=== PATIENT | female | born 1975 | race Caucasian/White ===

== ENCOUNTER 2022-09-24 05:47 | Day surgery (SDC) | payer BC, OTHER ==
[2022-09-22 14:29] VITALS: BMI 21.4
[2022-09-22 15:08] LABS: Hemoglobin 12.9 g/dL (12.0-15.5); Mean Corpuscular HGB CONC 33.7 g/dL (32.0-36.0); Mean Corpuscular Hemoglobin 32.4 pg (27.0-33.0); Mean Corpuscular Volume 96.2 fl (81.6-98.3); Platelet Count 214 10x3/uL (150-450); RBC Distribution Width 11.9 % (11.5-14.5); Red Blood Cell (RBC) Count 3.98 10x6/uL (3.90-5.03)
[2022-09-22 15:12] LABS: BHCG - Serum Negative (NEGATIVE); Pregs Control Bar Appear? YES (CONTROL BAR)
[2022-09-22 15:13] LABS: Pregs Control Background? CLEAR/WHITE (CLR/WHITE)
[2022-09-24] MEDS ORDERED: CeleCOXIB 100 MG CAP ONE (06:19)
[2022-09-24] MEDS ORDERED: Gabapentin 300 MG CAP ONE (06:20)
[2022-09-24] MEDS ORDERED: Famotidine/PF 20 mg/2ml Vial ONE (06:20)
[2022-09-24] MEDS ORDERED: Dexmedetomidine 200 MCG/2 ML VIAL ONE (06:37)
[2022-09-24] MEDS ORDERED: metroNIDAZOLE 500 MG/100 ML BAG ONE (06:37)
[2022-09-24] MEDS ORDERED: Dexamethasone 20 MG/5 ML VIAL ONE (06:47)
[2022-09-24] MEDS ORDERED: Ondansetron PF 4 MG/2 ML Vial ONE ×2 (06:47→12:22)
[2022-09-24] MEDS ORDERED: Ketorolac Tromethamine 30 MG/ML VIAL ONE (06:47)
[2022-09-24] MEDS ORDERED: PROPOFOL 20 ML ONE (06:47)
[2022-09-24] MEDS ORDERED: Midazolam HCl 2 mg/2 ml Vial ONE ×3 (06:47→07:39)
[2022-09-24] MEDS ORDERED: Glycopyrrolate 0.2 MG/ML 5 ML SYRINGE ONE (06:47)
[2022-09-24] MEDS ORDERED: Lidocaine 1% PF 5 ML VIAL ONE (06:47)
[2022-09-24] MEDS ORDERED: Fentanyl 250 MCG/5 ML VIAL ONE (06:47)
[2022-09-24] MEDS ORDERED: Bupivacaine HCl 0.5%/Epinephrine 1:200,000/PF 30 ml Vial ONE (06:50)
[2022-09-24] MEDS ORDERED: CEFAZOLIN 2 GM VIAL ONE (07:05)
[2022-09-24] MEDS ORDERED: PHENYLEPHRINE-NS 100 MCG/ML 10 ML SYRINGE ONE (07:52)
== END 2022-09-24 14:20 | disposition home or self-care (01) ==
LOC: CSHSDC 05:47
PROVIDERS: ATTEND Obstetrics & Gynecology
PROC: 0UT74ZZ Resection of Bilateral Fallopian Tubes, Percutaneous Endoscopic Approach (ICD-10-PCS; principal; 2022-09-24)
PROC: 0UT94ZZ Resection of Uterus, Percutaneous Endoscopic Approach (ICD-10-PCS; principal; 2022-09-24)
DX: D25.9 Leiomyoma of uterus, unspecified (principal); N80.03 Adenomyosis of the uterus; N88.8 Other specified noninflammatory disorders of cervix uteri; N72 Inflammatory disease of cervix uteri; N87.0 Mild cervical dysplasia; N94.6 Dysmenorrhea, unspecified; N92.0 Excessive and frequent menstruation with regular cycle; Z88.0 Allergy status to penicillin
CPT/HCPCS: 84703; 85027; 86850; 86900; 86901; 88307; C9250; J1100; J1885; J2250; J2405; J2704; J3010; S0028